=== PATIENT | male | born 1970 | race African-American/Black ===

== ENCOUNTER 2024-11-28 07:24 | Inpatient (IN) | payer BC ==
--- OUTSIDE RECORDS SUMMARY | 2024-11-28 07:28 | XMS REPORT | Continuity of Care Document ---
Author Name Unknown Address [address] [facility] [address] [place] [address] Organization [facility] [place] Address [address] [facility] [address] [place] [address] Care Team Providers Care Evp Operations Name Role Phone MELISSA ABBEY Attending Clinician Unavailable MITESH KWONG Attending Clinician Unavailable MARCUS RUELAS Attending Clinician Unavailable GUERDA URBINA Attending Clinician Unavailable LAB44 Attending Clinician Unavailable PATO WOO Attending Clinician Unavail able BRITTNEY CHRISTINA Attending Clinician Unavailable PLABPA Attending Clinician Unavailable LAWRENCE CISSE Attending Clinician Unavailable SNEHA MONACO Attending Clinician Unavail able JUWAN DEL VALLE Attending Clinician Unavailable AGNIESZKA HINSON Attending Clinician Unavailable DANIS BRENNAN Attending Clinician Unavailable LUIZ MAIN Attending Clinician Unavailable JUJU MUNROE Attending Clinician Unavailable MD ESPERANZA Attending Clinician Unavailab PADMINI Callahan Attending Clinician Unavail able LINUS GONZALEZ Attending Clinician Unavailable JONN BONILLA Attending Clinician Unavailable Cholo Watkins Attending Clinician RIK Gimenez Attending Clinician Unavailable BETO FISHER Attending Clinician Unavailable CROW MORRIS Attending Clinician Víctor Harrison Attending Clinician Unavailable Physician, No Primary or Family Admitting Clinic aldo Unavailable Cholo Watkins Admitting Clinician Jil Harrison Admitting Clinician Unavailable Payers Payer Name Policy Type Policy Number Effective Date Expirati on Date Source BCBS 2 [id number] 2024 00:00:00 CIGNA-CIGNA/PPO 2 [id number] 2020 00:00:00 Problems Condition Name Condition Details Condition Category Status Onset Date Resolution Date Last Treatment Date Treating Clinician Comments Source Shortness of breath Shortness of breath Disease Active 2023-08 0-07 00:00: 00 Selma Seybold - Externa l Prediabete s Prediabete s Disease Active 4-11 00:00: 00 Selma Seybold - Externa l Non compliance w medication regimen Non compliance w medication regimen Disease Active 3-16 00:00: 00 Selma Seybold - Externa l Pyuria Pyuria Disease Active 2021-08 00:00: 00 Selma Seybold - Externa l Hyperlipid emia Hyperlipid emia Disease Active 2021-08 00:00: 00 Selma Seybold - Externa l Obesity Obesity Disease Active 2021-08 00:00: 00 Selma Seybold - Externa l Primary hypertensi on Primary hypertensi on Disease Active 2021-08 0- 00:00: 00 Selma Seybold - Externa l Mild persistent asthma (HHS-HCC) Mild persistent asthma (HHS-HCC) Disease Active 2021-08 0 00:00: 00 Selma Seybold - Externa l Mild intermitte nt asthma without complicati on Mild intermitte nt asthma without complicati on Active Problem 11/15/[facility] Problem Active 2020-11-15 02:45:07 [facility] [place] Seasonal allergic rhinitis, unspecifie d trigger Seasonal allergic rhinitis, unspecifie d trigger Active Problem 11/15/2020 [facility] Problem Active 2020-11-15 02:45:07 [facility] [place] Moderate persistent asthma without complicati on Moderate persistent asthma without complicati on Active Problem 12/01/2018 [facility] Problem Active 2018-12-01 02:45:18 Paulina Cummins Allergies, Adverse Reactions, Alerts Allergy Name Allergy Type Status Severity Reaction(s) Onset Date Inactive Date Treating Clinician Comments Source Latex Propensi ty to adverse reaction s Active Rash 10-28 00:00: 00 Selma Yusuf - Externa l Peanut (Diagnos tic) Propensi ty to adverse reaction s Active Rash 10-28 00:00: 00 Selma Yusuf - Externa l peanut FA Active U 2018-08 00:00: 00 [facility] peanut FA Active U UNKNOWN 2018-08 00:00: 00 [facility] Social History Social Habit Start Date Stop Date Quantity Comments Source Gender identity Neeta Yusuf - External Sexual orientation Kermit Yusuf - External Alcoholic beverage intake 2024-11-17 00:00:00 2024-11-17 00:00:00 Ex-drinker (finding) Selma Yusuf - External Tobacco use and exposure 2024-04-13 00:00:00 2024-04-13 00:00:00 Smokeless tobacco non-user Selma Yusuf - External Alcohol intake 2023-10-29 00:00:00 2023-10-29 00:00:00 Ex-drinker (finding) Selma Yusuf - External History of Social function 2023-03-15 00:00:00 2023-03-15 00:00:00 Selma Yusuf - External History of tobacco use 2022-05-15 00:00:00 Cigarette Smoker Selma Yusuf - External Sex 2021-02-26 15:31:17 2021-02-26 15:31:17 Male (finding) Selma Yusuf - External Sex assigned at 1970 00:00:00 1970 00:00:00 Selma Yusuf - External Smoking Status Start Date Stop Date Source Tobacco smoking consumption unknown Selma Yusuf - External Ex-smoker 2024-04-13 00:00:00 2024-04-13 00:00:00 Selma Yusuf - External Never smoked tobacco Selma Seybold - External Medications Ordered Medication Name Filled Medication Name Start Date Stop Date Current Medication? Ordering Clinician Indication Dosage Frequency Signature (SIG) Comments Components Source Montelukast (SINGULAIR) 10 MG oral Tablet tablet 11-17 00:00: 00 Yes [id number] 10mg QD Take 1 tablet (10 mg total) by mouth nightly. Selma latif FLUTICASONE PROPIONATE, NASAL, 50 MCG/ACT nasal Suspension 11-17 00:00: 00 Yes [id number] 50ug QD Use 1 spray (50 mcg total) in each nostril daily. Selma latif Albuterol (PROVENTIL) (2.5 MG/3ML) 0.083% inhalation Inhalant Solution 11-17 00:00: 00 Yes [id number] 2.5mg Q4H Take 2.5 mg by nebulizati on every 4 hours as needed for wheezing. Selma latif Fluticasone -Salmeterol (Advair Diskus) 250-50 MCG/ACT inhalation AEROSOL POWDER, BREATH ACTIVATED 11-17 00:00: 00 Yes [id number] 1{puff} Q.5D Inhale 1 puff into the lungs 2 times daily. Selma latif Cetirizine (ZYRTEC) 10 MG oral Tablet 2023-08 2-11 00:00: 00 Yes [id number] 10mg QD TAKE 1 TABLET BY MOUTH EVERY DAY Selma latif amLODIPine Besy-Benaze pril HCl 5-10 MG oral Capsule 9-20 00:00: 00 Yes 2{capsu le} QD Take 2 capsules by mouth daily. Selma latif Cetirizine HCl (ZyrTEC Allergy) 10 MG oral TABLET DISPERSIBLE 9-06 00:00: 00 Yes [id number] 1{tbl} QD Take 1 tablet by mouth daily. Selma latif amLODIPine Besy-Benaze pril HCl 5-10 MG oral Capsule 8-30 00:00: 00 Yes 1{capsu le} QD Take 1 capsule by mouth daily. Selma latif Albuterol HFA 108 (90 Base) MCG/ACT IN AERS 04-13 00:00: 00 Yes [id number] 2{puff} Q4H Inhale 2 puffs into the lungs every 4 hours as needed for wheezing. Selma latif Atorvastati n Calcium (Lipitor) 40 MG oral Tablet 04-13 00:00: 00 04-09 04:59 :00 No [id number] 40mg QD Take 1 tablet (40 mg total) by mouth daily. Selma latif Metformin HCl ER 500 MG oral TABLET SR 24 HR 04-13 00:00: 00 04-09 04:59 :00 No [id number] 500mg QD Take 1 tablet (500 mg total) by mouth daily (with breakfast) . Selma latif Budesonide- Formoterol Fumarate (Symbicort) 160-4.5 MCG/ACT inhalation Aerosol 04-13 00:00: 00 11-17 00:00 :00 No [id number] 2{puff} Q.5D Inhale 2 puffs into the lungs 2 times daily. Selma latif Ibuprofen (MOTRIN) 800 MG oral Tablet 02-05 00:00: 00 04-13 00:00 :00 No 800mg Take 1 tablet (800 mg total) by mouth every 6 to 8 hours as needed FOR PAIN. Selma latif Metformin HCl ER 500 MG oral TABLET SR 24 HR 11-23 00:00: 00 04-13 00:00 :00 No [id number] 500mg QD Take 1 tablet (500 mg total) by mouth daily (with breakfast) . Selma latif Atorvastati n Calcium (Lipitor) 40 MG oral Tablet 11-23 00:00: 00 04-13 00:00 :00 No [id number] 40mg QD Take 1 tablet (40 mg total) by mouth daily. Selma latif amLODIPine Besy-Benaze pril HCl 5-10 MG oral Capsule 11-20 00:00: 04-13 00:00 :00 No [id number] 1{capsu le} QD Take 1 capsule by mouth daily. Selma latif amLODIPine Besy-Benaze pril HCl 5-10 MG oral Capsule -16 00:00: 00 Yes [id number] 1{capsu le} Take 1 capsule by mouth daily. Selma latif Atorvastati n Calcium (Lipitor) 20 MG oral Tablet 16 00:00: 00 Yes [id number] 20mg Take 1 tablet (20 mg total) by mouth daily. Selma latif Albuterol HFA 108 (90 Base) MCG/ACT IN AERS 10-28 00:00: 00 04-13 00:00 :00 No [id number] 2{puff} Q4H Inhale 2 puffs into the lungs every 4 hours as needed for wheezing. Selma latif Budesonide- Formoterol Fumarate (Symbicort) 160-4.5 MCG/ACT inhalation Aerosol 10-28 00:00: 00 04-13 00:00 :00 No [id number] 2{puff} Q.5D Inhale 2 puffs into the lungs 2 times daily. Selma latif predniSONE (DELTASONE) 20 MG oral tablet 10-28 00:00: 00 11-05 04:59 :00 No [id number] 20mg Take 1 tablet (20 mg total) by mouth daily for 7 days. Selma latif Naproxen 500 MG oral Tablet 03-15 00:00: 00 04-13 00:00 :00 No 500mg Take 1 tablet (500 mg total) by mouth in the morning and 1 tablet (500 mg total) in the evening. Take with meals. Selma latif Clarithromy syeda 500 MG oral Tablet 4 00:00: 00 03-15 00:00 :00 No [id number] 500mg Take 1 tablet (500 mg total) by mouth 2 times daily for 14 days Selma latif Metronidazo le 500 MG oral Tablet 12-11 00:00: 03-15 00:00 :00 No [id number] 500mg Take 1 tablet (500 mg total) by mouth 3 times daily for 14 days Selma latif Amoxicillin (AMOXIL) 500 MG oral Capsule 12-11 00:00: 00 03-15 00:00 :00 No [id number] 1000mg Take 2 capsules (1,000 mg total) by mouth 2 times daily for 14 days Selma latif Pantoprazol e Sodium (Protonix) 40 MG oral Pack 12-11 00:00: 03-15 00:00 :00 No [id number] 1{packe t} Take 1 packet by mouth every 12 hours for 14 days Selma latif Sod Picosulfate -Mag Ox-Cit Acd (Clenpiq) 10-3.5-12 MG-GM -GM/160ML oral Solution -24 00:00: 12-08 00:00 :00 No 160mL Take 160 mL by mouth once for 1 dose Selma latif Atorvastati n Calcium (Lipitor) 10 MG oral Tablet 09-16 00:00: 00 10-28 00:00 :00 No 10mg Take 1 tablet (10 mg total) by mouth daily Selma latif Doxycycline Hyclate 100 MG oral Tablet 2021-08 00:00: 00 12-08 00:00 :00 No [id number] 100mg Take 1 tablet (100 mg total) by mouth 2 times daily Selma latif Albuterol Sulfate 2.5 MG/0.5ML inhalation Inhalant Solution 2021-08 00:00: 00 11-17 00:00 :00 No [id number] 2.5mg Q4H Take 2.5 mg by nebulizati on every 4 hours as needed for wheezing Selma latif Albuterol HFA 108 (90 Base) MCG/ACT IN AERS 2021-08 00:00: 00 10-28 00:00 :00 No [id number] 2{puff} Q4H Inhale 2 puffs into the lungs every 4 hours as needed for wheezing Selma latif Budesonide- Formoterol Fumarate (Symbicort) 160-4.5 MCG/ACT inhalation Aerosol 2021-08 0- 00:00: 00 10-28 00:00 :00 No [id number] 2{puff} Inhale 2 puffs into the lungs 2 times daily Selma latif LISINOPRIL- HCTZ 10-12.5 MG oral Tablet 2021-08 0 00:00: 00 10-28 00:00 :00 No [id number] 1{tbl} Take 1 tablet by mouth every morning Selma latif Arnuity Ellipta 2019-0 7-17 00:00: 00 Yes Mariusz Annamaneni 1 puff Paulina Cummins Ventolin HFA 2018-0 4-18 00:00: 00 Yes Mariusz Annamaneni 2 puffs as needed Paulina Cummins Immunizations Ordered Immunization Name Filled Immunization Name Date Status Comments Source Tdap- (Boostrix, Adacel) 2022-06-04 00:00:00 Completed Selma Yusuf - External Influenza Virus Vaccine, age 6 months and up 2022-06-04 00:00:00 Completed Selma Yusuf - External Tdap- (Boostrix, Adacel) 2022-06-04 00:00:00 Completed Selma Yusuf - External Influenza Virus Vaccine, age 6 months and up 2022-06-04 00:00:00 Completed Selma Yusuf - External Tdap- (Boostrix, Adacel) 2022-06-04 00:00:00 Completed Selma Yusuf - External Influenza Virus Vaccine, age 6 months and up 2022-06-04 00:00:00 Completed Selma Yusuf - External Tdap- (Boostrix, Adacel) 2022-06-04 00:00:00 Completed Selma Yusuf - External Influenza Virus Vaccine, age 6 months and up 2022-06-04 00:00:00 Completed Selma Seybold - External Tdap- (Boostrix, Adacel) 2022-06-04 00:00:00 Completed Selma Seybold - External Influenza Virus Vaccine, age 6 months and up 2022-06-04 00:00:00 Completed Selma Seybold - External Tdap- (Boostrix, Adacel) Unknown Completed Selma Seybold - External Influenza Virus Vaccine, age 6 months and up Unknown Completed Slema Seybold - External Tdap- (Boostrix, Adacel) Unknown Completed Selma Seybold - External Influenza Virus Vaccine, age 6 months and up Unknown Completed Selma Seybold - External Tdap- (Boostrix, Adacel) Unknown Completed Selma Seybold - External Influenza Virus Vaccine, age 6 months and up Unknown Completed Selma Seybold - External Pneumococcal Vaccine, Conjugate 20 Unknown Completed Selma Seybold - External Tdap- (Boostrix, Adacel) Unknown Completed Selma Seybold - External Influenza Virus Vaccine, age 6 months and up Unknown Completed Selma Seybold - External Pneumococcal Vaccine, Conjugate 20 Unknown Completed Selma Seybold - External Hepatitis B- 2 Dose (HEPLISAV B) Unknown Completed Selma Seybold - External Shingles IM (Shingrix) Unknown Completed Selma Seybold - External Tdap- (Boostrix, Adacel) Unknown Completed Selma Seybold - External Influenza Virus Vaccine, age 6 months and up Unknown Completed Selma Seybold - External Pneumococcal Vaccine, Conjugate 20 Unknown Completed Selma Seybold - External Hepatitis B- 2 Dose (HEPLISAV B) Unknown Completed Selma Seybold - External Shingles IM (Shingrix) Unknown Completed Selma Seybold - External Tdap- (Boostrix, Adacel) Unknown Completed Selma Seybold - External Influenza Virus Vaccine, age 6 months and up Unknown Completed Selma Seybold - External Pneumococcal Vaccine, Conjugate 20 Unknown Completed Selma Seybold - External Hepatitis B- 2 Dose (HEPLISAV B) Unknown Completed Selma Seybold - External Shingles IM (Shingrix) Unknown Completed Selma Seybold - External Vital Signs Vital Name Observation Time Observation Value Comments S ource Systolic blood pressure 2024-11-17 17:59:00 156 mm[Hg] Selma Odaliso ld - External Diastolic blood pressure 2024-11-17 17:59:00 77 mm[Hg] Selma Seybo ld - External Heart rate 2024-11-17 17:59:00 83 /min Kelse y Seybold - External Body temperature 2024-11-17 17:59:00 36.94 Kathie Selma Seybold - External Respiratory rate 2024-11-17 17:59:00 20 /min Selma Seybold - External Body height 2024-11-17 17:59:00 190.5 cm Neeta ey Seybold - External Body weight 2024-11-17 17:59:00 121.564 kg Neeta ey Seybold - External BMI 2024-11-17 17:59:00 33.50 kg/m2 Neeta ey Seybold - External Oxygen saturation in Arterial blood by Pulse oximetry 2024-11-17 17:59:00 94 /min Selma Seybo ld - External Systolic blood pressure 2024-07-23 14:37:00 145 mm[Hg] Selma Seybo ld - External Diastolic blood pressure 2024-07-23 14:37:00 78 mm[Hg] Selma Seybo ld - External Heart rate 2024-07-23 14:35:00 83 /min Gianse y Seybold - External Body temperature 2024-07-23 14:35:00 36.83 Kathie Selma Seybold - External Respiratory rate 2024-07-23 14:35:00 17 /min Selma Seybold - External Body height 2024-07-23 14:35:00 190.5 cm Neeta ey Seybold - External Body weight 2024-07-23 14:35:00 118.842 kg Neeta ey Seybold - External BMI 2024-07-23 14:35:00 32.75 kg/m2 Neeta ey Seybold - External Systolic blood pressure 2024-05-21 13:47:00 152 mm[Hg] Selma Seybo ld - External Diastolic blood pressure 2024-05-21 13:47:00 96 mm[Hg] Selma Seybo ld - External Heart rate 2024-05-21 13:47:00 76 /min Kelse y Seybold - External Body temperature 2024-05-21 13:47:00 36.67 Kathie Selma Seybold - External Respiratory rate 2024-05-21 13:47:00 17 /min Selma Seybold - External Body height 2024-05-21 13:47:00 190.5 cm Neeta ey Seybold - External Body weight 2024-05-21 13:47:00 122.471 kg Neeta ey Seybold - External BMI 2024-05-21 13:47:00 33.75 kg/m2 Neeta ey Seybold - External Oxygen saturation in Arterial blood by Pulse oximetry 2024-05-21 13:47:00 97 /min Selma Seybo ld - External Systolic blood pressure 2024-04-20 19:51:00 138 mm[Hg] Selma Seybo ld - External Diastolic blood pressure 2024-04-20 19:51:00 74 mm[Hg] Selma Seybo ld - External Heart rate 2024-04-20 19:51:00 80 /min Kelse y Seybold - External Body temperature 2024-04-20 19:51:00 37.17 Kathie Selma Seybold - External Respiratory rate 2024-04-20 19:51:00 18 /min Selma Seybold - External Body height 2024-04-20 19:51:00 190.5 cm Neeta ey Seybold - External Body weight 2024-04-20 19:51:00 121.564 kg Neeta ey Seybold - External BMI 2024-04-20 19:51:00 33.50 kg/m2 Neeta ey Seybold - External Oxygen saturation in Arterial blood by Pulse oximetry 2024-04-20 19:51:00 98 /min Selma Seybo ld - External Systolic blood pressure 2024-04-13 18:35:00 201 mm[Hg] Selma Seybo ld - External Diastolic blood pressure 2024-04-13 18:35:00 102 mm[Hg] Selma Seybo ld - External Heart rate 2024-04-13 18:30:00 91 /min Kelse y Seybold - External Body temperature 2024-04-13 18:30:00 36.83 Kathie Selma Seybold - External Respiratory rate 2024-04-13 18:30:00 18 /min Selma Seybold - External Body height 2024-04-13 18:30:00 190.5 cm Neeta ey Seybold - External Body weight 2024-04-13 18:30:00 125.646 kg Neeta ey Seybold - External BMI 2024-04-13 18:30:00 34.62 kg/m2 Neeta ey Seybold - External Systolic blood pressure 2023-10-29 17:36:00 172 mm[Hg] Selma Seybo ld - External Diastolic blood pressure 2023-10-29 17:36:00 100 mm[Hg] Selma Seybo ld - External Oxygen saturation in Arterial blood by Pulse oximetry 2023-10-29 17:36:00 97 /min Selma Seybo ld - External Heart rate 2023-10-29 17:35:00 79 /min Kelse y Seybold - External Body temperature 2023-10-29 17:35:00 36.89 Kathie Selma Seybold - External Respiratory rate 2023-10-29 17:35:00 20 /min Selma Seybold - External Body weight 2023-10-29 17:35:00 119.296 kg Neeta ey Seybold - External BMI 2023-10-29 17:35:00 32.87 kg/m2 Neeta ey Seybold - External Systolic blood pressure 2023-03-15 18:26:00 146 mm[Hg] Selma Seybo ld - External Diastolic blood pressure 2023-03-15 18:26:00 90 mm[Hg] Selma Seybo ld - External Heart rate 2023-03-15 18:26:00 68 /min Kelse y Seybold - External Body temperature 2023-03-15 18:26:00 36.89 Kathie Selma Seybold - External Respiratory rate 2023-03-15 18:26:00 14 /min Selma Seybold - External Body height 2023-03-15 18:26:00 190.5 cm Neeta ey Seybold - External Body weight 2023-03-15 18:26:00 118.661 kg Neeta ey Seybold - External BMI 2023-03-15 18:26:00 32.70 kg/m2 Neeta ey Seybold - External Systolic blood pressure 2022-12-08 20:34:00 132 mm[Hg] Selma Seybo ld - External Diastolic blood pressure 2022-12-08 20:34:00 82 mm[Hg] Selma Seybo ld - External Heart rate 2022-12-08 20:34:00 76 /min Kelse y Seybold - External Body temperature 2022-12-08 20:34:00 37.06 Kathie Selma Seybold - External Respiratory rate 2022-12-08 20:34:00 16 /min Selma Seybold - External Body height 2022-12-08 20:34:00 190.5 cm Neeta ey Seybold - External Body weight 2022-12-08 20:34:00 120.203 kg Neeta ey Seybold - External BMI 2022-12-08 20:34:00 33.12 kg/m2 Neeta ey Seybold - External Systolic blood pressure 2022-09-16 19:56:00 144 mm[Hg] Selma Seybo ld - External Diastolic blood pressure 2022-09-16 19:56:00 86 mm[Hg] Selma Seybo ld - External Heart rate 2022-09-16 19:56:00 96 /min Kelse y Seybold - External Body temperature 2022-09-16 19:56:00 36.94 Kathie Selma Seybold - External Respiratory rate 2022-09-16 19:56:00 18 /min Selma Seybold - External Body height 2022-09-16 19:56:00 190.5 cm Neeta ey Seybold - External Body weight 2022-09-16 19:56:00 122.018 kg Neeta ey Seybold - External BMI 2022-09-16 19:56:00 33.62 kg/m2 Neeta ey Seybold - External Systolic blood pressure 2022-08-06 21:16:00 148 mm[Hg] Selma Seybo ld - External Diastolic blood pressure 2022-08-06 21:16:00 98 mm[Hg] Selma Seybo ld - External Heart rate 2022-08-06 21:16:00 98 /min Kelse y Seybold - External Body temperature 2022-08-06 21:16:00 36.67 Kathie Selma Seybold - External Respiratory rate 2022-08-06 21:16:00 18 /min Selma Seybold - External Body height 2022-08-06 21:16:00 190.5 cm Neeta ey Seybold - External Body weight 2022-08-06 21:16:00 119.296 kg Neeta ey Seybold - External BMI 2022-08-06 21:16:00 32.87 kg/m2 Neeta ey Seybold - External Systolic blood pressure 2022-06-16 19:10:00 142 mm[Hg] Selma Seybo ld - External Diastolic blood pressure 2022-06-16 19:10:00 90 mm[Hg] Selma Seybo ld - External Heart rate 2022-06-16 19:10:00 96 /min Kelse y Seybold - External Body temperature 2022-06-16 19:10:00 36.78 Kathie Selma Seybold - External Respiratory rate 2022-06-16 19:10:00 12 /min Selma Seybold - External Body weight 2022-06-16 19:10:00 118.389 kg Neeta ey Seybold - External BMI 2022-06-16 19:10:00 32.62 kg/m2 Neeta ey Seybold - External Encounters Start Date/Time End Date/Time Encounter Type Admission Type Attending [facility] Facility Care Department Encounter ID Source 2019-10-01 19:21:00 Inpatient HCATB DARIEN [id number] [facility] 2025-01-18 11:00:00 2025-01-18 11:00:00 Outpatient ABBEY TORRES [id number] [facility] ybrita 2024-11-21 13:30:00 2024-11-21 13:30:00 Outpatient ABBEY TORRES [id number] [facility] Seybrita 2024-11-20 00:00:00 2024-11-20 00:00:00 Outpatient [facility] [id number] [facility]24-[facility]-20 00:00:00 2024-11-20 00:00:00 Outpatient MARCUS RUELAS [id number] [facility] Seybrita 2024-11-17 13:00:00 2024-11-17 13:00:00 Outpatient GUERDA URBINA [facility] FAUST [id number] [facility] 2024-11-17 10:30:00 2024-11-17 10:30:00 Outpatient GUERDA URBINA [facility] FAUST [id number] [facility] 2024-08-21 08:00:00 2024-08-21 08:00:00 Outpatient MITESH KWONG [facility] [id number] [facility] 2024-08-10 09:10:00 2024-08-10 09:10:00 Outpatient LAB44 [facility] FAUST [id number] [facility] 2024-07-25 00:00:00 2024-07-25 00:00:00 Outpatient PATO WOO [facility] FA[facility] [id number] [facility] 2024-07-23 09:00:00 2024-07-23 09:00:00 Outpatient MITESH KWONG [facility] FAUST [id number] [facility] 2024-05-21 16:30:00 2024-05-21 16:30:00 Outpatient BRITTNEY CHRISTINA [facility] FAUST [id number] [facility] 2024-05-21 14:00:00 2024-05-21 14:00:00 Outpatient MITESH KWONG [facility] FAUST [id number] [facility] 2024-05-21 09:00:00 2024-05-21 09:00:00 Outpatient MITESH KWONG [facility] FAUST [id number] [facility] 2024-05-16 15:40:00 2024-05-16 15:40:00 Outpatient PLABPA [facility] [id number] [facility] 2024-05-16 08:30:00 2024-05-16 08:30:00 Outpatient SELMA FAUST [id number] [facility] 2024-05-10 09:30:00 2024-05-10 09:30:00 Outpatient LAB44 [facility] FAUST [id number] [facility] 2024-05-04 14:30:00 2024-05-04 14:30:00 Outpatient LAWRENCE CISSE [id number] [facility] 2024-04-26 13:30:00 2024-04-26 13:30:00 Outpatient DAMIANYosefSNEHA HANNA RA [facility] [id number] [facility] 2024-04-21 09:10:00 2024-04-21 09:10:00 Outpatient LABTeresa [facility] FAUST [id number] [facility] Seybold 2024-04-20 15:50:00 2024-04-20 15:50:00 Outpatient SELMA FAUST [id number] [facility] 2024-04-20 14:30:00 2024-04-20 14:30:00 [facility] [id number] [facility] 08:20:00 2024-04-20 08:20:00 Outpatient JUWAN DEL VALLE [id number] [facility] 2024-04-13 13:30:00 2024-04-13 13:30:00 Outpatient KATINA KWONGIA [facility] [id number] [facility] 2024-04-13 00:00:00 2024-04-13 00:00:00 Outpatient JUWAN DEL VALLE [id number] [facility] 2024-01-20 12:00:00 2024-01-20 12:00:00 Outpatient AGNIESZKA HINSON [id number] [facility] 2024-01-05 16:00:00 2024-01-05 16:00:00 Outpatient DANIS BRENNAN [id number] [facility] 2023-12-09 15:00:00 2023-12-09 15:00:00 Outpatient MARCUS RUELAS [id number] [facility] 2023-12-09 09:30:00 2023-12-09 09:30:00 Outpatient LUIZ MAIN [id number] [facility] 2023-11-24 00:00:00 2023-11-24 00:00:00 Outpatient PATO WOO [id number] [facility] Seybold 2023-11-20 00:00:00 2023-11-20 00:00:00 Outpatient PATO WOO [facility] [id number] [facility] Seybold 2023-11-19 09:25:00 2023-11-19 09:25:00 Outpatient LAB44 SELMA FAUST [id number] [place] Seybold 2023-10-29 12:15:00 2023-10-29 12:15:00 Outpatient PATO WOO SELMA FAUST [id number] [place] Seybold 2023-07-08 00:00:00 2023-07-08 00:00:00 Outpatient JUJU MUNROE [id number] [place] Seybold 2023-03-15 13:30:00 2023-03-15 13:30:00 Outpatient MARCUS RUELAS [id number] [place] Seybold 2022-12-27 15:00:00 2022-12-27 15:00:00 Outpatient JUJU MUNROE [id number] [place] Seybold 2022-12-22 16:20:00 2022-12-22 16:20:00 Outpatient LAB44 SELMA FAUST [id number] [place] Seybold 2022 00:00:00 2022 00:00:00 Outpatient MD SELMA GONSALES [id number] [place] Seybold 2022-12-13 00:00:00 2022-12-13 00:00:00 Outpatient JUJU MUNROE [id number] [place] Seybold 2022-12-11 00:00:00 2022-12-11 00:00:00 Outpatient PADMINI LONGO [id number] [place] Seybold 2022-12-11 00:00:00 2022-12-11 00:00:00 Outpatient LINUS GONZALEZ [id number] [place] Seybold 2022-12-10 00:00:00 2022-12-10 00:00:00 Outpatient JUJU MUNROE [id number] Eslma Seybold 2022-12-08 16:05:00 2022-12-08 16:05:00 Outpatient VIJAYTeresa FAUST [id number] [place] Seybrita 2022-12-08 15:30:00 2022-12-08 15:30:00 Outpatient JUJU MUNROE SELMA FAUST [id number]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 Hosp: Cefdinir Cap (Omnicef Cap) Dose: 300 MG PO Q12H, Disp: 14 capsule, Refills: 0 Hosp: Losartan/HCTZ 100/25 Tab (Hyzaar 100-25 MG Tab) Dose: 1 TAB PO DAILY, Disp: 90 tablet, Refills: 0 Hosp: predniSONE Tab (Deltasone Tab) Dose: 20 MG PO BID, Disp: 10 tablet, Refills: 0 - For 5 days STOPPED HOSPITAL MEDICATIONS Dc'd: Albuterol Neb 2.5mg (Ventolin Neb 2.5mg) 2.5MG Neb RTQIDDc'd: Albuterol/Ipratrop Neb Soln (Duoneb Neb Soln) 3ML Neb [id number]'d: Budesonide Neb Soln (Pulmicort Neb Soln) 0.5MG Neb RTBIDDc'd: cefTRIAXone Inj (Rocephin Inj) 1000MG 200 MLS/HR IV DAILY@2100 X 5 dosesin Sodium Chloride 0.9% (Nacl 0.9%) 10ML Dc'd: HCTZ Tab (Hydrochlorothiazide Tab) 12.5MG PO DAILYDc'd: hydrALAZINE Inj (Apresoline Inj) 10MG IV Q4H PRN sbp >160 or dbp >110Dc'd: Lisinopril Tab (Prinivil Tab) 20MG PO DAILYDc'd: methylPREDNISolone Inj (Solu-MEDROL Inj) 40MG IV [id number] Signed in PatientKeeper by Cholo Watkins on 11/18/21 13:49 at 1350 ATTENT ION *EDITS and/or ADDENDA must be made in Patient Keeper for this note. * * Edits and ammendments created in [facility] are not visible * * in Patient Keeper or the legal medical record (HPF). * RPT #: [id number] [facility] 13:31:00 [facility] ([facility] Internal Med. Progress Note REPORT #: [id number] REPORT STATUS: Signed DATE: 11/18/21 TIME: 1331 PATIENT: RALF RUSH UNIT #: [id number] ROOM #: N.[id number] BED: 1 : 70 AGE: 50 SEX: M ATTEND: Cholo Watkins MD ADM AUTHOR: Cholo Watkins MD ATTENT ION *EDITS and/or ADDENDA must be made in Patient Keeper for this note. * * Edits and ammendments created in House Party are not visible * * in Patient Keeper or the legal medical record ([facility]). * -- ASSESSMENT AND PLAN -- PROBLEMS: 1: Acute asthma exacerbation A/P: Improved, no wheezing 2: Acute bronchitis A/P: PO Antibiotics 3: Hypertension A/P: Optimize antihypertensive 4: Dyslipidemia A/P: Start Lipitor 5: Obesity A/P: Discussed to loose weight 6: Marijuana abuse A/P: Discussed to refrain from marijuana abuse ADDITIONAL COMMENTS: Discharge home on PO steroid, antibiotics Thank you for allowing me to participate in the care of this patient. Total time spent: more than 45 mins Including seeing patient, d/w nursing, review of medications, labs, radiology reports, hearing aid consultant notes, and coordination of care. -- SUBJECTIVE -- CHIEF COMPLAINT: Breathing better, BP better but not optimal, -REVIEW OF SYSTEMS- GENERAL: Negative for fever, malaise, fatigue. EYES: Negative for blurry vision. No diplopia. EARS/NOSE/THROAT: Negative for sore throat. No otalgia. No rhinorrhea. BREAST: Negative for change in shape, swelling, masses, nipple discharge, pain, skin changes. RESPIRATORY: Positive for dyspnea and wheeze. Positive cough. CARDIOVASCULAR: Negative for chest pain or palpitations. No extremity swelling. GASTROINTESTINAL: Negative for abdominal pain or nausea. No emesis. No diarrhea. GENITOURINARY: Negative for dysuria, frequency, or urgency. No gross hematuria. MUSCULOSKELETAL: Negative for joint stiffness, pain, or arthralgias. SKIN: Negative for rashes. No pruritus. NEUROLOGICAL: Negative for headache. No vertigo. Denies paresthesias. PSYCHIATRIC: Negative for specific complaints. ENDOCRINE: Negative for cold intolerance, heat intolerance, polyphagia, polydipsia, polyuria, weight change, fatigue. HEMATALOGIC / LYMPHORETICULAR: Negative for excessive bleeding, unusual masses. ALLERGIC / IMMUNOLOGIC: Negative for heat/cold intolerance, polydipsia, or polyuria. -- OBJECTIVE -- VITALS (11/17 13:31 - 11/18 13:31): Temperature C: 36.9 (36.5 - 36.9) Temperature source: Oral Pulse Rate 74 (71 - 87) Respiratory rate: 18 (18 - 20) BP: 163/90 (155/73 - 166/96) I/Os (11/17 07:00 - 11/18 07:00): Net 240 Intake 240 -EXAM- GENERAL: Well developed, well nourished, in no apparent distress. HEAD: Normocephalic, atraumatic. EYES: PERRL, EOM intact, conjunctiva and sclera clear, without nystagmus, lids normal. EARS: TM's intact and clear, normal canals, grossly normal hearing. NOSE: No deformity, no discharge, no inflammation, no lesions. MOUTH: Oropharynx without deformities or lesions, normal mucosa.. NECK: No masses, no thyromegaly, no abnormal cervical nodes, trachea midline. CHEST: Grossly normal appearance. BREAST: Examination deferred LUNGS: Clear bilaterally with normal respiratory effort. HEART: Regular rate and rhythm, normal S1, S2, no murmurs, no rubs, no gallops, no clicks. ABDOMEN: Soft, non-tender, no organomegaly, no masses noted. MUSCULOSKELETAL: No deformity, no scoliosis noted of thoracic or lumbar spine, joint ROM grossly normal, normal gait and station. EXTREMITIES: No clubbing, no cyanosis, no edema. NEUROLOGICAL: No focal deficits, cranial nerves II-XII grossly intact, normal sensation, normal reflexes, normal coordination, normal muscle strength, normal tone. PULSES: Pulses normal in all extremities. RECTAL: Normal rectal tone, no masses. GENITOURINARY: Normal external genitalia. SKIN: Intact without significant lesions, or rashes. LYMPH NODES: No significant cervical node adenopathy. No significant axillary node adenopathy. No significant inguinal node adenopathy. PSYCHIATRIC: Alert and oriented to time, person, place. Normal mood and affect, intact judgment and insight. -- DATA -- MEDICATIONS hydroCHLOROthiazide 12.5 MG PO DAILY ALBUTEROL SULFATE 2.5 MG NEB RTQID cefTRIAXone with/in SODIUM CHLORIDE 0.9% 1000 MG IV DAILY@2100 hydrALAZINE HCL 10 MG IV Q4H PRN ALBUTEROL SULFATE 2.5 MG NEB RTQ4H PRN lisinopriL 20 MG PO DAILY carvediloL 25 MG PO Q12HR methylPREDNISolone SOD SUCC 40 MG IV Q8HR BUDESONIDE 0.5 MG NEB RTBID NIFEdipine 30 MG PO Q12HR IPRATROPIUM/ALBUTEROL SULFATE 3 ML NEB RTQ6H LABS GLU BED (11/18/21 05:44) GLUBED 150 H BASIC METABOLIC PANEL (11/18/21 04:50) SODIUM 136 POTASSIUM 4.6 CHLORIDE 99L L CARBON DIOXIDE 28 GLUCOSE 132H H BLOOD UREA NITROGEN 17 GLOMERULAR FILTRATION RATE >=60 max estimate CREATININE 1.12 CALCIUM 9.5 TSH (11/18/21 04:50) THYROID STIMULATING HORMONE 0.693 LIPID PROFILE (CORONARY RISK) (11/18/21 04:50) TRIGLYCERIDES 57 CHOLESTEROL 247 H HDL CHOLESTEROL 62 LIPOPROTEIN LDL 174 H CORONARY RISK FACTOR 3.98 GLU BED (11/17/21 20:51) GLUBED 141 H GLU BED (11/17/21 15:19) GLUBED 128 H -- ATTESTATION -- TIME SPENT ON PATIENT CARE: - > 50% of time spent on Counseling/Care Coordination CARE ACTIVITIES / CARE COORDINATION: - I have seen and examined this patient - I have reviewed the progress in the clinical course since the last examination - I have discussed the patient's condition with other members of the care team Signed in PatientKeeper by Cholo Watkins MD on 11/18/21 at 13:39 at 1339 ATTENT ION *EDITS and/or ADDENDA must be made in Patient Keeper for this note. * * Edits and ammendments created in House Party are not visible * * in Patient Keeper or the legal medical record (HPF). * [facility] #: [id number] END OF REPORT [facility] 2021-11-17 11:23:00 [id number] [address] PATIENT NAME: RALF RUSH ADMIT DATE: 11/16/21 ACCOUNT NO: [id number] ROOM NO: N.[id number] AGE: 50 REPORT TYPE: HISTORY AND PHYSICAL SEX: M ADMITTING PHYSICIAN:Cholo Watkins MD ATTENDING PHYSICIAN:Cholo Watkins MD ADMISSION DATE: 11/16/2021 CHIEF COMPLAINT: Shortness of air, cough, and wheezing for 2 to 3 weeks. HISTORY OF PRESENT ILLNESS: Mr. Ralf Rush is a 50-year-old male with a known history of asthma and also smokes marijuana every weekend, developed worsening shortness of air, wheezing, and tightness in the chest for the last 2 to 3 weeks, which was waxing and waning. Finally, he was seen by his industrial hygiene manager where he was also noted to have uncontrolled blood pressure. He was asked to come to the Emergency Department. A chest x-ray done in the ER did not show any acute abnormality, though his blood pressure was 176/127. He was started on antihypertensive medications, given inhaled bronchodilators and IV steroid and admitted for further evaluation and care. He denied any fever, chills, hemoptysis, chest pain, palpitation, dysuria, hematuria, diarrhea, constipation, leg edema, PND, or orthopnea. PAST MEDICAL HISTORY: Significant for asthma. PAST SURGICAL HISTORY: Not significant. MEDICATIONS AT HOME: Albuterol nebulizer. ALLERGIES: HE IS ALLERGIC TO PEANUTS, BUT NO KNOWN MEDICATIONS. SOCIAL HISTORY: He denies any history of tobacco smoking. He smokes marijuana and drinks beer on weekends. FAMILY HISTORY: His grandmother has diabetes mellitus. His mother had hypertension. REVIEW OF SYSTEMS: All systems were reviewed and noncontributory except as per history of present illness. PHYSICAL EXAMINATION: GENERAL: He is alert and oriented x3, not in acute distress. VITAL SIGNS: Blood pressure 156/87, pulse 69, respiratory rate 18, and temperature 98.1 degrees Fahrenheit. HEENT: Normocephalic, atraumatic. Pupils are equal and equally reactive to light. Extraocular movement intact. Oral mucosa moist. Oropharynx clear. NECK: Supple. No lymphadenopathy. No JVD. No carotid artery bruit, no thyromegaly. CHEST: Clear to auscultation bilaterally, but decreased breath sounds PATIENT NAME RALF RUSH throughout. No wheezing. CARDIOVASCULAR SYSTEM: Regular rate and rhythm. Decreased S1 and S2. No murmur, gallop, or rub. ABDOMEN: Soft, nontender, nondistended. Bowel sounds present. EXTREMITIES: No clubbing, cyanosis, or edema. LABORATORY DATA: CBC: WBC 9.3, hemoglobin 16.4, hematocrit 49.2, platelet 288. Serum electrolytes; sodium 137, potassium 4.2, chloride 103, CO2 of 27, BUN 8, creatinine 1.10, blood glucose 88. LFTs are normal. Troponin I less than 0.020. ASSESSMENT: 1. Acute asthma exacerbation. 2. Acute bronchitis. 3. Hypertension. 4. Obesity. 5. Marijuana abuse. PLAN: IV Solu-Medrol 40 mg every 8 hours, inhaled bronchodilators and inhaled steroid. Start antihypertensive medications and optimize dose as necessary. Discussed to refrain from using marijuana and avoid alcohol use. Check TSH, lipid profile and update other labs in the morning. Discussed with consulting industrial hygiene manager, Dr. Valentin. Discussed with the nurse taking care of the patient. Discussed with the patient plan of management. We will follow. Dictated By: Cholo Watkins MD WT: HP:N.NELLIE/KUALONZO Conf#: [id number]/DID#: [id number] Authenticated by Cholo Watkins MD On 11/19/2021 05:13:03 PM at 0513 PATIENT NAME RALF RUSH [facility] 2021-11-17 09:54:00 [id number] [address] PATIENT NAME: RALF RUSH ADMIT DATE: 11/16/21 ACCOUNT NO: [id number] ROOM NO: N.0585 AGE: 50 REPORT TYPE: PROGRESS NOTE SEX: M ADMITTING PHYSICIAN:Cholo Watkins MD ATTENDING PHYSICIAN:Cholo Watkins MD DATE: 11/17/2021 PULMONARY PROGRESS NOTE SUBJECTIVE: The patient notices shortness of breath on exertion, cough. Denies any chest pain, nausea, or vomiting. OBJECTIVE: VITAL SIGNS: Respiratory rate of 18, pulse 77, afebrile. Blood pressure 159/92. NECK: No raised JVD. No lymphadenopathy. HEART: Both first and second heart sounds heard. LUNGS: Bilateral rhonchi scattered. ABDOMEN: Soft. EXTREMITIES: No edema. CENTRAL NERVOUS SYSTEM: Moving all extremities. IMPRESSION: 1. Acute exacerbation of asthma. 2. Acute bronchitis. 3. Hypertension, newly diagnosed. PLAN: Continue with IV ceftriaxone. On methylprednisolone. Nebulizer treatments to continue. On carvedilol and amlodipine. Cardiology consulted. Dictated By: Mariusz Valentin MD WT: PN:BOB/KALANI Conf#: [id number]/DID#: [id number] Authenticated by Mariusz Valentin MD On 12/12/2021 02:51:37 PM at 0251 PATIENT NAME RALF RUSH [facility] 2021-11-17 07:30:00 [facility] ([facility]) Cardiology Consultation REPORT #: [id number] REPORT STATUS: Signed DATE: 11/17/21 TIME: 729 PATIENT: RALF RUSH UNIT #: [id number] ROOM #: N.0585 BED: 1 : 70 AGE: 50 SEX: M ATTEND: Cholo Watkins MD ADM AUTHOR: Clayton Smith MD ATTENT ION *EDITS and/or ADDENDA must be made in Patient Keeper for this note. * * Edits and ammendments created in House Party are not visible * * in Patient Keeper or the legal medical record (HPF). * -- ASSESSMENT AND PLAN -- ADDITIONAL COMMENTS: 1. Acute respiratory insufficiency- secondary to asthma exacerbation. Further management per pulmonary. 2. HTN urgency- was atrted on Coreg, Amlodipine yesterday evening. Increase Coreg dose. Obtain TTE. 3. Marijuana use Time spent: 45 min -- HISTORY -- CONSULT REQUESTED BY: MARIUSZ VALENTIN MD DATE/TIME AT BEDSIDE: 2021-11-17 07:30 HPI: Patient is a 50-year-old male with h/o asthma, marijuana user, HTN admitted from Dr Valentin office with increasing shortness of breath and elevated BP. He has been out of his BP meds for a long time. Added Amlodipine, Coreg yesterday evening. BP is better. Increase Coreg to 1.5 tab bid. Denies any chest pain, palpitation, syncope or diaphoresis. . PAST MEDICAL HISTORY: asthma, marijuana user, HTN PAST SURGICAL HISTORY: Reviewed and unremarkable. FAMILY HISTORY: Reviewed and unremarkable. -SOCIAL HISTORY- -TOBACCO USE- DETAILS/COMMENTS: Former -- ALLERGIES/HOME MEDS -- ALLERGIES: peanut (Unknown - Allergy) -- SUBJECTIVE -- -REVIEW OF SYSTEMS- GENERAL: Negative for fever, malaise, fatigue. EYES: Negative for blurry vision. No diplopia. EARS/NOSE/THROAT: Negative for sore throat. No otalgia. No rhinorrhea. BREAST: Negative for change in shape, swelling, masses, nipple discharge, pain, skin changes. RESPIRATORY: Negative for cough. CARDIOVASCULAR: Negative for chest pain or palpitations. No extremity swelling. GASTROINTESTINAL: Negative for abdominal pain or nausea. No emesis. No diarrhea. GENITOURINARY: Negative for dysuria, frequency, or urgency. No gross hematuria. MUSCULOSKELETAL: Negative for joint stiffness, pain, or arthralgias. SKIN: Negative for rashes. No pruritus. NEUROLOGICAL: Negative for headache. No vertigo. Denies paresthesias. PSYCHIATRIC: Negative for specific complaints. ENDOCRINE: Negative for cold intolerance, heat intolerance, polyphagia, polydipsia, polyuria, weight change, fatigue. HEMATALOGIC / LYMPHORETICULAR: Negative for excessive bleeding, unusual masses. ALLERGIC / IMMUNOLOGIC: Negative for heat/cold intolerance, polydipsia, or polyuria. -- OBJECTIVE -- VITALS (11/16 14:29 - 11/17 14:29): Temperature F: 98.1 Temperature C: 36.5 (36.5 - 36.8) Temperature source: Oral Pulse Rate 77 (69 - 82) Respiratory rate: 18 BP: 168/109 (156/87 - 176/127) -EXAM- GENERAL: Well developed, well nourished, in no apparent distress. HEAD: Normocephalic, atraumatic. EYES: PERRL, EOM intact, conjunctiva and sclera clear, without nystagmus, lids normal. EARS: TM's intact and clear, normal canals, grossly normal hearing. NOSE: No deformity, no discharge, no inflammation, no lesions. MOUTH: Oropharynx without deformities or lesions, normal mucosa.. NECK: No masses, no thyromegaly, no abnormal cervical nodes, trachea midline. CHEST: Grossly normal appearance. BREAST: No masses, no gynecomastia noted. LUNGS: Clear bilaterally with normal respiratory effort. HEART: Regular rate and rhythm, normal S1, S2, no murmurs, no rubs, no gallops, no clicks. ABDOMEN: Soft, non-tender, no organomegaly, no masses noted. MUSCULOSKELETAL: No deformity, no scoliosis noted of thoracic or lumbar spine, joint ROM grossly normal, normal gait and station. EXTREMITIES: No clubbing, no cyanosis, no edema. NEUROLOGICAL: No focal deficits, cranial nerves II-XII grossly intact, normal sensation, normal reflexes, normal coordination, normal muscle strength, normal tone. PULSES: Pulses normal in all extremities. RECTAL: Normal rectal tone, no masses. GENITOURINARY: Normal external genitalia. SKIN: Intact without significant lesions, or rashes. LYMPH NODES: No significant cervical node adenopathy. No significant axillary node adenopathy. No significant inguinal node adenopathy. PSYCHIATRIC: Alert and oriented to time, person, place. Normal mood and affect, intact judgment and insight. -- DATA -- MEDICATIONS hydroCHLOROthiazide 12.5 MG PO DAILY ALBUTEROL SULFATE 2.5 MG NEB RTQID amLODIPine BESYLATE 5 MG PO Q12HR cefTRIAXone with/in SODIUM CHLORIDE 0.9% 1000 MG IV DAILY@2100 hydrALAZINE HCL 10 MG IV Q4H PRN ALBUTEROL SULFATE 2.5 MG NEB RTQ4H PRN lisinopriL 20 MG PO DAILY methylPREDNISolone SOD SUCC 40 MG IV Q8HR BUDESONIDE 0.5 MG NEB RTBID carvediloL 12.5 MG PO Q12HR IPRATROPIUM/ALBUTEROL SULFATE 3 ML NEB RTQ6H LABS COVID 19 INHOUS (11/17/21 10:20) COVID 19 INHOUSE AG NEGATIVE TROPI (11/16/21 16:46) TROPONIN-I <0.020 COMPREHENSIVE METABOLIC PANEL (11/16/21 16:46) SODIUM 137 POTASSIUM 4.2 CHLORIDE 103 CARBON DIOXIDE 27 GLUCOSE 88 BLOOD UREA NITROGEN 8 GLOMERULAR FILTRATION RATE >=60 max estimate CREATININE 1.10 TOTAL PROTEIN 7.1 ALBUMIN 3.9 CALCIUM 8.5 BILIRUBIN TOTAL 0.40 SGOT/AST 24 SGPT/ALT 25 ALKALINE PHOSPHATASE 78 CBC W/AUTO DIFF (11/16/21 16:46) WHITE BLOOD CELL 9.3 RED BLOOD CELL 5.29 HEMOGLOBIN 16.4 HEMATOCRIT 49.2 MEAN CELL VOLUME 93 MEAN CELL HGB 31.0 MEAN CELL HGB CONCENTRATION 33.3 RED CELL DISTRIBUTION WIDTH 12.6 PLATELET COUNT 288 MEAN PLATELET VOLUME 9.6 NEUTROPHIL % 58.2 IMMATURE GRANULOCYTE % 0.2 LYMPHOCYTE % 22.7 MONOCYTE % 8.2 EOSINOPHIL % 9.7 H BASOPHIL % 1.0 NUCLEATED RBC % 0.0 NEUTROPHIL # 5.4 LYMPHOCYTE # 2.11 MONOCYTE # 0.8 EOSINOPHIL # 0.9 H BASOPHIL # 0.1 BNP (11/16/21 16:46) B-TYPE NATRIURETIC PEPTIDE 8 DRUGS OF ABUSE SCREEN URINE (11/16/21 16:46) UR COCAINE NEGATIVE UR CANABINOIDS POSITIVE A UR AMPHETAMINE NEGATIVE UR BARBITURATE NEGATIVE UR BENZODIAZEPINE NEGATIVE UR OPIATES QUAL NEGATIVE UR PHENCYCLIDINE (PCP) NEGATIVE Signed in PatientKeeper by Clayton Smith MD on 11/17/21 at 14:35 at 1435 ATTENT ION *EDITS and/or ADDENDA must be made in Patient Keeper for this note. * * Edits and ammendments created in House Party are not visible * * in Patient Keeper or the legal medical record (HPF). * [facility] #: [id number] END OF REPORT [facility] 2021-11-16 19:20:00 [id number] [address] PATIENT NAME: RALF RUSH ADMIT DATE: 11/16/21 ACCOUNT NO: [id number] ROOM NO: [id number] AGE: 50 REPORT TYPE: CONSULTATION SEX: M ADMITTING PHYSICIAN:Cholo Watkins MD ATTENDING PHYSICIAN:Cholo Watkins MD CONSULTATION DATE: CONSULTING PHYSICIAN: Mariusz Valentin MD ATTENDING PHYSICIAN: Dr. Watkins. REASON FOR CONSULTATION: Asthma exacerbation. HISTORY OF PRESENT ILLNESS: This is a 50-year-old -Citizen Of [place] male who came to my office. The patient was last seen somewhere in 2019. History of asthma and noncompliant with the office visits and his medications. The patient states he was coughing up some brownish color phlegm for the last 2 to 3 weeks, wheezing, coughing and no hemoptysis. No chest pain. No headaches or dizziness. Short of breath on exertion. He was not getting better, hence came to the Emergency Room. He was taking albuterol inhaler. No chest pains. No leg swellings. While he was in the office, his systolic was 170s and diastolics 122 and repeat was in the 116 to 118 range, diastolic. He was advised to come to the Emergency Room. I did call the ER physician, talked to him and sent him to the Emergency Room. The patient did come to the ER reluctantly. While he was in the Emergency Room, his blood pressure was elevated and the blood pressure was 178/127 with a heart rate of 82, afebrile. He did get hydralazine. Subsequent blood pressure was 178/97. He got nebulizer treatments and IV steroids. Feeling better. Less short of breath, less cough. LABORATORY DATA: Revealed troponin I less than 0.020. Sodium is 137, potassium 4.2, chloride 103, bicarbonate 27, BUN of 8, creatinine is 1.10. AST 24, ALT 25. CBC: WBC of 9.3, hemoglobin 16.4, and platelets 288. BNP was 8. Urine tox screen was positive for cannabinoids. ALLERGIES: PEANUT. HOME MEDICATIONS: Albuterol inhaler and nebulizer. SOCIAL HISTORY: Denies tobacco use, smokes marijuana. REVIEW OF SYSTEMS: As mentioned in HPI. No headaches. No fever. No hemoptysis. Short of breath. Coughing up some yellowish brown color phlegm for the last couple of weeks. Does notice wheezing. Has been taking his nebulizer treatments and inhalers frequently. No chest pains. No nausea, vomiting, diarrhea, or dizziness. No leg swelling. PHYSICAL EXAMINATION: PATIENT NAME RALF RUSH GENERAL: He is alert, he is awake. VITAL SIGNS: Respiratory rate of 18, pulse 74, temperature 36.6, blood pressure 168/97, sats room air is 95%. NECK: No raised JVD. No lymphadenopathy. HEART: Both first and second heart sounds heard. LUNGS: Bilateral rhonchi. ABDOMEN: Soft. EXTREMITIES: No edema. CENTRAL NERVOUS SYSTEM: Moving all extremities. IMPRESSION: 1. Acute exacerbation of bronchial asthma. 2. Acute bronchitis. 3. Hypertension, newly detected. PLAN: 1. The patient will consult Dr. Smith. MD will take care of blood pressure medications. 2. IV Solu-Medrol. 3. Nebulizer treatments, albuterol, ipratropium. 4. IV antibiotics. Chest x-ray reported negative. Thank you very much Dr. Watkins for your kind referral. Dictated By: Mariusz Valentin MD WT: CON:NADRIAN/BARBY/ARLETTE Conf#: [id number]/DID#: [id number] Authenticated by Mariusz Valentin MD On 12/12/2021 02:51:36 PM at 0251 PATIENT NAME RALF RUSH [facility] 2021-11-16 17:46:00 [facility] ([facility]) EMERGENCY PROVIDER REPORT REPORT#:[id number] REPORT STATUS: Signed DATE:11/16/21 TIME: 1745 PATIENT: RALF RUSH UNIT #: [id number] ROOM: [facility] BED: 1 AGE: 50 SEX: M PCP PHYS: No Primary or Family Physician SERVICE AUTHOR: Brianne Rob MD * ALL edits or amendments must be made on the electronic/computer document * HPI-General Illness Free Text HPI Notes Free Text HPI Notes 50 y/o M hx of asthma, says his sx usually get worse this time of the year, here with SOB, sent in from Dr. Gomez's office. 2-3d of sx, SOB, wheeze, cough, chest tightness, no swelling. Also coincidentally HTNive. Gradual onset, worsening, moderate, constant, no associated fevers. General Initial Greet Date/Time 11/16/21 1628 Provider in Triage HPI Chief Complaint Shortness of breath PE General/Const No acute distress Presentation Chief Complaint Breathing problem Review of Systems ROS Statements All systems rev neg except as marked. Review of Systems Constitutional Denies: Fever. Respiratory Reports: Cough, non-productive, Shortness of breath, Wheezing. Past Medical History - Adult Stated Complaint ASTHMAEXACERBATION,HTN Allergies Coded Allergies: peanut (UNKNOWN 06/04/19) Additional Medical History Asthma Family History: Reports: Hypertension. Smoking status: Smoking status for patients 13 years old or older: Current some day smoker Physical Exam Vital Signs Vital Signs First Documented: Result Date Time Pulse Ox 94 11/16 1629 B/P 176/127 / 1629 B/P Mean 143 / 1629 O2 Delivery Room air 11/16 1629 Temp 98.1 11/16 1629 Pulse 82 11/16 1629 Resp 18 11/16 1629 Last Documented: Result Date Time Pulse Ox 94 11/16 1629 B/P 176/127 11/16 1629 B/P Mean 143 / 1629 O2 Delivery Room air 11/16 1629 Temp 98.1 11/16 1629 Pulse 82 11/16 1629 Resp 18 11/16 1629 Review of Vital Signs Reviewed Free Text PE Notes Free Text PE Notes Constitutional: Vital signs and nursing note reviewed Eyes: PERRLA Cardiovascular: Heart sounds normal Pulmonary: Mild work of breathing. Expiratory wheeze. Abdomen: Soft, nontender Musck: No deformity Skin: Warm, dry Psych: Behavior normal Interpretation Diagnostics Lab Results Interpretation Results Laboratory Tests 11/16/21 1646: [Embedded Image Not Available] Laboratory Tests: 11/16 1645 Hematology WBC (3.2 - 11.5 x10 3/uL) 9.3 RBC (4.20 - 5.70 x10(6)/m) 5.29 Hgb (12.9 - 17.3 g/dL) 16.4 Hct (38.7 - 51.0 %) 49.2 MCV (80 - 100 fL) 93 MCH (26.7 - 33.3 pg) 31.0 MCHC (30.0 - 34.0 g/dL) 33.3 RDW (11.3 - 14.5 %) 12.6 Plt Count (130 - 408 x10 3/uL) 288 MPV (8.6 - 12.6 fL) 9.6 Neut % (Auto) (40.0 - 70.0 %) 58.2 Lymph % (Auto) (20 - 40 %) 22.7 [place] % (Auto) (1 - 10 %) 8.2 Eos % (Auto) (0.0 - 5.0 %) 9.7 H Baso % (Auto) (0.0 - 1.0 %) 1.0 Neut # (Auto) (1.6 - 7.2 x10 3/uL) 5.4 Lymph # (Auto) (1.1 - 2.7 x10 3/uL) 2.11 [place] # (Auto) (0.3 - 0.8 x10 3/uL) 0.8 Eos # (Auto) (0.0 - 0.5 x10 3/uL) 0.9 H Baso # (Auto) (0.0 - 0.1 x10 3/uL) 0.1 Immature Gran % (0.0 - 2.0 %) 0.2 Nucleated RBC % (0.0 - 0.9 %) 0.0 Microbiology: Date/Time Procedure - Status Source Growth 11/16 1724 Influenza Virus Type B Antigen - ORD NASOPHARG 11/16 1724 Influenza Virus Type A Antigen - ORD NASOPHARG Recent Impressions: RADIOLOGY - XR CHEST 1 V 11/16 1738 Report Impression -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
[2024-11-28] MEDS ORDERED: ALBUTEROL 2.5 MG/3 ML NEB SOL ONE ×5 (07:39→19:47)
[2024-11-28] MEDS ORDERED: IPRATROPIUM BROM 0.5MG/2.5ML ONE ×4 (07:40→19:47)
[2024-11-28] MEDS ORDERED: predniSONE 20 MG TAB ONE (07:40)
[2024-11-28 08:06] LABS: Absolute Basophils 0.1 K/uL (0-0.5); Absolute Eosinophils 0.8 K/uL (0-0.5); Absolute Monocytes 0.7 K/uL (0.1-1.3); Eosinophils % 7.6 % (0-4.4); Hematocrit 45.9 % (39.6-49.0); Hemoglobin 15.3 g/dL (13.6-17.9); Lymphocytes % 19.1 % (15.3-44.8); MCH 30.9 pg (27.0-35.0); MCHC 33.3 g/dL (32.0-36.0); MCV 92.9 fL (80-100); MPV 8.2 fL (7.6-11.3); Monocytes % 6.2 % (3.3-12.3); Neutrophils % 66.1 % (41.7-73.7); Nucleated Red Blood Cells % 0.1 % (0-0); Platelets 261 thou/uL (152-406); RBC Red Blood Cell Count 4.94 M/uL (4.33-5.43); Red Cell Distribution Width 13.3 % (12.1-15.2)
[2024-11-28 08:38] LABS: ALT/SGPT 34 U/L (16-61); AST/SGOT 32 U/L (15-37); Albumin 3.4 g/dL (3.4-5.0); Albumin/Globulin Ratio 0.9 (1.1-1.8); Alkaline Phosphatase 80 U/L (45-117); Anion Gap 8.7 mEq/L (5.0-15.0); BUN Blood Urea Nitrogen 13 mg/dL (7-18); Bicarbonate 29 mEq/L (21-32); Bilirubin Total 0.5 mg/dL (0.2-1.0); Globulin 3.8 g/dL (2.3-3.5); Glomerular Filtration Rate 68 ml/min (=/>90); Glucose Level 140 mg/dL (74-106); NT PRO-BNP 6 pg/mL (<125); Potassium 3.7 mEq/L (3.5-5.1); Protein, Total 7.2 g/dL (6.4-8.2); Sodium Level 140 mEq/L (136-145); Troponin High Sensitivity 7.8 pg/mL (<58.9)
[2024-11-28 08:39] LABS: Bilirubin Direct < 0.2 mg/dL (0-0.2); Bilirubin Indirect, Calculated 0.3 mg/dL (0.2-0.8)
--- NOTE | 2024-11-28 09:57 | RAD REPORT ---
EXAMINATION: ONE VIEW CHEST XR CLINICAL INDICATION: Male, 53 years old.,DYSPNEA TECHNIQUE: Frontal chest projection is submitted. Examination is limited by patient positioning and t echnique. COMPARISON: No prior exam. FINDINGS: The lungs are well inflated and clear. No pneumothorax or sizable effusion. The heart is normal in s ize. Mediastinal contours are unremarkable. IMPRESSION: No acute intrathoracic abnormalities.
[2024-11-28] MEDS ORDERED: ONDANSETRON 4 MG/2 ML VIAL IV PRN (10:12)
[2024-11-28] MEDS ORDERED: ACETAMINOPHEN 500 MG TAB PO PRN (10:12)
--- NOTE | 2024-11-28 10:12 | ER ---
Nurse's Notes [facility] Name: Bon Méndez Age: 53 yrs Sex: Male : 1970 Arrival Date: 11/28/2024 Time: 07:24 Bed 4 Private MD: Diagnosis: Asthma exacerbation;Hypoxia Presentation: 11/28 07:35 Chief complaint: Patient states: asthma exacerbation since last night. Coronavirus iw screen: At this time, the client does not indicate any symptoms associated with coronavirus-19. Ebola Screen: No symptoms or risks identified at this time. Initial Sepsis Screen: Does the patient meet any 2 criteria? No. Patient's initial sepsis screen is negative. Does the patient have a suspected source of infection? No. Patient's initial sepsis screen is negative. Risk Assessment: Do you want to hurt yourself or someone else? Patient reports no desire to harm self or others. 07:35 Method Of Arrival: Ambulatory iw 07:35 Acuity: ANURAG 4 iw 07:39 Onset of symptoms was November 27, 2024. iw 07:39 Acuity: ANURAG 3 iw Historical: - Allergies: 08:01 No Known Allergies; kc6 - PMHx: 08:01 Asthma; Hypertensive disorder; kc6 - PSHx: 08:01 None; kc6 - Immunization history:: Adult Immunizations up to date. - Infectious Disease History:: Denies. - Family history:: not pertinent. - Social history:: Smoking status: unknown. Screenin:02 [facility] ED Fall Risk Assessment (Adult) History of falling in the last 3 months, kc6 including since admission No falls in past 3 months (0 pts) Confusion or Disorientation No (0 pts) Intoxicated or Sedated No (0 pts) Impaired Gait No (0 pts) Mobility Assist Device Used No (0 pt) Altered Elimination No (0 pt) Score/Fall Risk Level 0 - 2 = Low Risk Oriented to surroundings. Abuse screen: Denies threats or abuse. Denies injuries from another. Nutritional screening: No deficits noted. Tuberculosis screening: No symptoms or risk factors identified. Assessment: 08:10 General: Appears in no apparent distress. comfortable, well groomed, well developed, kc6 Behavior is calm, cooperative, appropriate for age. Pain: Denies pain. Neuro: Level of Consciousness is awake, alert, obeys commands, Oriented to person, place, time, situation, Appropriate for age. Cardiovascular: Capillary refill < 3 seconds Rhythm is regular. Respiratory: Reports shortness of breath on exertion Airway is patent Trachea midline Respiratory effort is even, unlabored, Respiratory pattern is regular, symmetrical, Breath sounds with wheezes bilaterally. GI: No signs and/or symptoms were reported involving the gastrointestinal system. : No signs and/or symptoms were reported regarding the genitourinary system. EENT: No signs and/or symptoms were reported regarding the EENT system. Derm: No signs and/or symptoms reported regarding the dermatologic system. Skin is intact, is healthy with good turgor, Skin is pink, warm \T\ dry. Musculoskeletal: No signs and/or symptoms reported regarding the musculoskeletal system. Circulation, motion, and sensation intact. Range of motion: intact in all extremities. 09:07 Reassessment: Patient appears in no apparent distress at this time. No changes from kc6 previously documented assessment. Patient and/or family updated on plan of care and expected duration. Pain level reassessed. Patient is alert, oriented x 3, equal unlabored respirations, skin warm/dry/pink. Patient states feeling better. 10:07 Reassessment: Patient appears in no apparent distress at this time. No changes from kc6 previously documented assessment. Patient and/or family updated on plan of care and expected duration. Pain level reassessed. Patient is alert, oriented x 3, equal unlabored respirations, skin warm/dry/pink. Vital Signs: 07:36 Pulse 88; Resp 20; Pulse Ox 95% on R/A; iw 08:02 BP 162 / 100; Pulse 86; Resp 18 S; Pulse Ox 91% on R/A; kc6 10:15 BP 159 / 98; Pulse 78; Resp 16 S; Pulse Ox 96% on 2 lpm NC; kc6 19:59 BP 168 / 88; Pulse 96; Resp 17; Temp 98.2; Pulse Ox 100% ; dd2 ED Course: 07:29 Patient arrived in ED. gm2 07:29 Shabbir Gale MD is Attending Physician. rt 07:36 Triage completed. iw 07:38 Pily Silva, RACHEL is Primary Nurse. kc6 08:01 Arm band placed on. kc6 08:02 Patient has correct armband on for positive identification. Bed in low position. Call kc6 light in reach. Side rails up X 1. Pulse ox on. NIBP on. Door closed. Noise minimized. Lights dimmed. Warm blanket given. Pillow given. Verbal reassurance given. 08:02 Initial lab(s) drawn, by me, sent to lab. Inserted saline lock: 20 gauge in right [facility] antecubital area, using aseptic technique. Blood collected. Flushed with 10 mL NS. 08:49 XRAY Chest (1 view) In Process Unspecified. EDMS 10:12 Tom Armendariz MD is Hospitalizing Provider. rt 11:01 No provider procedures requiring assistance completed. Patient admitted, IV remains in [facility] place. 21:19 Provided Education on: admission. lg3 Administered Medications: 07:50 Drug: DuoNeb Nebulize (3:1) (2.5 mg - 0.5 mg) 3 ml Nebulizer once Route: Nebulizer; 6 09:09 Follow up: Response: No adverse reaction kc6 07:50 Drug: predniSONE PO 40 mg PO once Route: PO; kc6 09:09 Follow up: Response: No adverse reaction 6 08:40 Drug: Albuterol Inhalation 2.5 mg Inhalation once Route: Inhalation; kc6 09:09 Follow up: Response: No adverse reaction 6 11:27 Drug: MethylPrednisoLONE IVP 125 mg IVP once Route: IVP; Site: right antecubital; [facility] Medication: 11:02 VIS not applicable for this client. kc6 Outcome: 10:12 Decision to Hospitalize by Provider. rt 11:01 Admitted to ER Hold. Please see [facility] for further documentation. 6 11:01 Condition: good 11:01 Instructed on the need for admit, 21:20 Patient left the ED. lg3 Signatures: Dispatcher [employer] EDMS Dede Moore, RN Giovanna Ibarra RN RN lg3 Pily Silva RN RN kc6 Shabbir Gale MD MD rt Herlinda Huggins 2 KAREEM WILL RN RN dd2
--- NOTE | 2024-11-28 10:12 | EDPHYS ---
Physician Documentation [facility] Name: Bon Méndez Age: 53 yrs Sex: Male : 1970 Arrival Date: 11/28/2024 Time: 07:24 Bed 4 Private MD: ED Physician Shabbir Gale HPI: 11/28 07:38 This 53 yrs old Black Male presents to ER via Ambulatory with complaints of Breathing rt Difficulty, Asthma Exacerbation. 07:38 Patient with history of asthma presents to the ED with breathing difficulty starting rt overnight, states that he has an asthma exacerbation about once per year. Denies chest pain, the hull complaints, symptoms are moderate in severity, no other aggravating alleviating factors.. Historical: - Allergies: 08: No Known Allergies; kc6 - PMHx: 08: Asthma; Hypertensive disorder; kc6 - PSHx: 08:01 None; kc6 - Immunization history:: Adult Immunizations up to date. - Infectious Disease History:: Denies. - Family history:: not pertinent. - Social history:: Smoking status: unknown. ROS: 07:38 Constitutional: Negative for fever, chills, and weight loss, Cardiovascular: Negative rt for chest pain, palpitations, and edema, Abdomen/GI: Negative for abdominal pain, nausea, vomiting, diarrhea, and constipation, MS/Extremity: Negative for injury and deformity, Skin: Negative for injury, rash, and discoloration, Neuro: Negative for headache, weakness, numbness, tingling, and seizure, 07:38 Respiratory: Positive for cough, shortness of breath, wheezing, Exam: 07:38 Constitutional: This is a well developed, well nourished patient who is awake, alert, rt and in no acute distress. Head/Face: Normocephalic, atraumatic. Chest/axilla: Normal chest wall appearance and motion. Nontender with no deformity. No lesions are appreciated. Cardiovascular: Regular rate and rhythm with a normal S1 and S2. No gallops, murmurs, or rubs. Normal PMI, no JVD. No pulse deficits. Abdomen/GI: Soft, non-tender, with normal bowel sounds. No distension or tympany. No guarding or rebound. No evidence of tenderness throughout. Skin: Warm, dry with normal turgor. Normal color with no rashes, no lesions, and no evidence of cellulitis. MS/ Extremity: Pulses equal, no cyanosis. Neurovascular intact. Full, normal range of motion. Neuro: Awake and alert, GCS 15, oriented to person, place, time, and situation. Cranial nerves II-XII grossly intact. Motor strength 5/5 in all extremities. Sensory grossly intact. Cerebellar exam normal. Normal gait. 07:38 Respiratory: Wheezes heard on all lung [place], no respiratory distress, 07:54 ECG was reviewed by the Attending Physician. rt Vital Signs: 07:36 Pulse 88; Resp 20; Pulse Ox 95% on R/A; iw 08:02 BP 162 / 100; Pulse 86; Resp 18 S; Pulse Ox 91% on R/A; kc6 10:15 BP 159 / 98; Pulse 78; Resp 16 S; Pulse Ox 96% on 2 lpm NC; kc6 19:59 BP 168 / 88; Pulse 96; Resp 17; Temp 98.2; Pulse Ox 100% ; dd2 MDM: 07:34 Medical Screening Exam initiated rt 10:12 Differential diagnosis: Asthma, pneumonia, CHF. Data reviewed: vital signs, nurses rt notes, lab test result(s), EKG, radiologic studies. Consideration of Admission/Observation Patient was admitted/placed on observation. Management of patient was discussed with the following: Hospitalist: Agrees to admit. I considered the following discharge prescriptions or medication management in the emergency department Medications were administered in the Emergency Department. See MAR. Independent interpretation of the following test(s) in the Emergency Department X-Ray: My interpretation is No infiltrate seen on interpretation of x-ray images. Test considered but Not performed: CT: Low suspicion for pulmonary embolus, CT angiogram not indicated. Care significantly affected by the following chronic conditions: Asthma. Counseling: I had a detailed discussion with the patient and/or guardian regarding the historical points, exam findings, and any diagnostic results supporting the discharge/admit diagnosis, lab results, radiology results, the need for further work-up and treatment in the hospital. Response to treatment: the patient's symptoms have mildly improved after treatment. 11/28 07:37 Order name: Basic Metabolic Panel; Complete Time: 08:47 rt 11/28 07:37 Order name: CBC with Diff; Complete Time: 08:47 rt 11/28 07:37 Order name: LFT's; Complete Time: 08:47 rt 11/28 07:37 Order name: NT PRO-BNP; Complete Time: 08:47 rt 11/28 07:37 Order name: Troponin HS; Complete Time: 08:47 rt 11/28 10:18 Order name: CBC with Automated Diff EDMS 11/28 10:18 Order name: CBC with Automated Diff EDMS 11/28 10:18 Order name: Comprehensive Metabolic Panel EDMS 11/28 10:18 Order name: Comprehensive Metabolic Panel EDMS 11/28 07:37 Order name: XRAY Chest (1 view); Complete Time: 10:03 rt 11/28 07:37 Order name: EKG; Complete Time: 07:38 rt 11/28 07:37 Order name: Cardiac monitoring; Complete Time: 07:49 rt 11/28 07:37 Order name: EKG - Nurse/Tech; Complete Time: 07:50 rt 11/28 07:37 Order name: IV Saline Lock; Complete Time: 08:01 rt 11/28 07:37 Order name: Labs collected and sent; Complete Time: 08:01 rt 11/28 07:37 Order name: O2 Per Protocol; Complete Time: 07:38 rt 11/28 07:37 Order name: O2 Sat Monitoring; Complete Time: 07:38 rt EC:54 Rate is 82 beats/min. Rhythm is regular, Normal Sinus Rhythm with No ectopy. QRS [place] rt is Normal. NV interval is normal. QRS interval is normal. QT interval is normal. No Q waves. No ST changes noted. Interpreted by me. Administered Medications: 07:50 Drug: DuoNeb Nebulize (3:1) (2.5 mg - 0.5 mg) 3 ml Nebulizer once Route: Nebulizer; kc6 09:09 Follow up: Response: No adverse reaction kc6 07:50 Drug: predniSONE PO 40 mg PO once Route: PO; kc6 09:09 Follow up: Response: No adverse reaction kc6 08:40 Drug: Albuterol Inhalation 2.5 mg Inhalation once Route: Inhalation; kc6 09:09 Follow up: Response: No adverse reaction kc6 11:27 Drug: MethylPrednisoLONE IVP 125 mg IVP once Route: IVP; Site: right antecubital; kc6 Disposition: 10:12 Critical Care:. rt Disposition Summary: 11/28/24 10:12 Hospitalization Ordered Notes: Hospitalization Status: Observation rt Provider: Tom Armendariz rt Condition: Stable rt Problem: an acute exacerbation rt Symptoms: have improved rt Bed/Room Type: Standard rt Location: Telemetry/MedSurg (observation)(11/28/24 19:11) Room Assignment: 229(11/28/24 19:11) Diagnosis - Asthma exacerbation rt - Hypoxia rt Forms: - Medication Reconciliation Form rt - SBAR form rt - Leadership Thank You Letter rt Critical care time excluding procedures: 10:12 Critical care time: Bedside Care: 30 minutes, Consultation: 5 minutes. Total time: 35 rt minutes Signatures: Dispatcher [employer] EDErin Chapman RN RN ss Pily Silva RN RN kc6 Ange Whiting RN RN kb3 Shabbir Gale MD MD rt Corrections: (The following items were deleted from the chart) 10:42 10:12 Telemetry/MedSurg (observation) rt kb3 10:42 10:12 rt kb3 19:11 10:42 [facility] ER HOLD kb3 ss 19:11 10:42 ERHOLD- kb3 ss
[2024-11-28] MEDS: NA CHLORIDE 0.9% 1,000 ML IV SCH (11:00)
[2024-11-28] MEDS ORDERED: METHYLPREDNISOLONE 125 MG INJ ONE (11:21)
[2024-11-28] MEDS ORDERED: NA CHLORIDE 0.9% 1,000 ML ONE (11:21)
[2024-11-28] MEDS: IPRATROPIUM BROM 0.5MG/2.5ML NEB SCH (11:25)
[2024-11-28] MEDS: BUDESONIDE 0.5 MG/2 ML NEB NEB SCH (11:25)
[2024-11-28] MEDS: ALBUTEROL 2.5 MG/3 ML NEB SOL NEB SCH (11:25)
[2024-11-28] MEDS: METHYLPREDNISOLONE 125 MG INJ IV SCH ×2 (12:00→21:44)
[2024-11-28 14:11] VITALS: BMI 33.2
[2024-11-28] MEDS: HYDRALAZINE HCL 20 MG/ML VIAL IV PRN (22:57)
[2024-11-29 05:22] LABS: Absolute Basophils 0.1 K/uL (0-0.5); Absolute Lymphocytes (CBC) 0.9 K/uL (0.7-4.9); Absolute Monocytes 0.6 K/uL (0.1-1.3); Absolute Neutrophil 13.8 K/uL (1.8-8.0); Basophils % 0.3 % (0-1.3); Eosinophils % 0.1 % (0-4.4); Hematocrit 45.2 % (39.6-49.0); Hemoglobin 15.3 g/dL (13.6-17.9); Lymphocytes % 5.7 % (15.3-44.8); MCH 31.8 pg (27.0-35.0); MCHC 33.9 g/dL (32.0-36.0); MCV 93.7 fL (80-100); MPV 8.1 fL (7.6-11.3); Neutrophils % 89.9 % (41.7-73.7); Platelets 262 thou/uL (152-406); RBC Red Blood Cell Count 4.83 M/uL (4.33-5.43); Red Cell Distribution Width 13.6 % (12.1-15.2)
[2024-11-29 05:56] LABS: Albumin 3.3 g/dL (3.4-5.0); Albumin/Globulin Ratio 0.9 (1.1-1.8); Anion Gap 11.3 mEq/L (5.0-15.0); Bilirubin Total 0.2 mg/dL (0.2-1.0); Globulin 3.7 g/dL (2.3-3.5); Potassium 4.3 mEq/L (3.5-5.1)
[2024-11-29 07:29] LABS: Blood Morphology Comment NOT SEEN (NOT SEEN); Platelet Estimate ADEQ; White Blood Cell Scan OK (OK)
[2024-11-29] MEDS: METOPROLOL TAR 50 MG TAB PO ONE (09:14)
[2024-11-29 10:41] VITALS: O2SAT 93
--- NOTE | 2024-11-29 12:19 | P.DS ---
Admission Date: 11/28/24 Discharge Date: 11/29/24 Disposition: ROUTINE DISCHARGE Discharge Condition: GOOD Brief History of Present Illness: Diagnosis HPI 11/28/2024 Hospital Course: Bon was admitted and treated for the following diagnosis. Vital Signs/Physical Exam: Temp Pulse Resp BP Pulse Ox 98.0 F 81 16 182/98 H 94 11/29/24 08:00 11/29/24 08:00 11/29/24 08:00 11/29/24 08:00 11/29/24 08:00 Laboratory Data at Discharge: WBC 15.30 thou/uL (4.3-10.9) H 11/29/24 05:09 Hgb 15.3 g/dL (13.6-17.9) 11/29/24 05:09 Hct 45.2 % (39.6-49.0) 11/29/24 05:09 Plt Count 262 thou/uL (152-406) 11/29/24 05:09 Sodium 139 mEq/L (136-145) 11/29/24 05:09 Potassium 4.3 mEq/L (3.5-5.1) D 11/29/24 05:09 BUN 16 mg/dL (7-18) 11/29/24 05:09 Creatinine 1.12 mg/dL (0.70-1.30) 11/29/24 05:09 Glucose 179 mg/dL (74-106) H 11/29/24 05:09 Total Bilirubin 0.2 mg/dL (0.2-1.0) 11/29/24 05:09 AST 16 U/L (15-37) 11/29/24 05:09 ALT 30 U/L (16-61) 11/29/24 05:09 Alkaline Phosphatase 78 U/L (45-117) 11/29/24 05:09 Home Medications: Albuterol Neb [Proventil 0.083% Neb Soln] 2.5 mg NEB [id number] amp 11/29/24 Methylprednisolone [Medrol dosepack] 4 mg PO DIRECTED #1 roxi 11/29/24 New Medications: Methylprednisolone [Medrol dosepack] 4 mg PO DIRECTED #1 roxi Physician Discharge Instructions: -DC IV and DC home -Follow-up with PCP in 1 to 2 weeks -Follow-up with Pulmonary in 1 to 2 weeks -Please call Dr. Armendariz at [phone] if any questions regarding hospital stay -Please call nursing station at [phone] if any nursing or medication questions -Return to the emergency room if symptoms worsen Diet: Regular Activity: Fall precautions Followup: OOTKATHARINE [Primary Care Provider] -
[2024-11-29 12:26] VITALS: BP 171/83; TEMP 97.3
--- NOTE | 2024-12-05 10:30 | P.HP ---
Certification for Inpatient Patient admitted to: Inpatient With expected LOS: >2 Midnights Patient will require the following post-hospital care: None Practitioner: I am a practitioner with admitting privileges, knowledge of patient current condition, hospital course, and medical plan of care. Services: Services provided to patient in accordance with Admission requirements found in Title 42 Section 412.3 of the Code of Federal Regulations Patient History Date of Service: 11/28/24 Reason for admission: Acute respiratory failure History of Present Illness: patient is a 53-year-old gentleman came to the hospital with difficulty breathing. Patient was tachypneic and short of breath and patient was placed on BiPAP. Patient has history of asthma and his symptoms been worsened for last week. Patient was given nebs, steroids, antibiotics. Patient clinically doing well and will place patient on nasal cannula. At this time, patient has respiratory failure. Patient will be admitted for inpatient hospitalization. Allergies No Known Allergies Allergy (Unverified 11/28/24 10:24) Home Medications: Albuterol Neb [Proventil 0.083% Neb Soln] 2.5 mg NEB [id number] amp 11/29/24 Methylprednisolone [Medrol dosepack] 4 mg PO DIRECTED #1 roxi 11/29/24 - Past Medical/Surgical History Has patient received pneumonia vaccine in the past: No Diabetic: No -: Asthma Past Surgical History: Patient denies surgical history - Family History Father Family History: Reviewed- Non-Contributory - Social History Smoking Status: Never smoker Alcohol use: No CD- Drugs: No Place of Residence: Home Review of Systems 10-point ROS is otherwise unremarkable Physical Examination - Vital Signs Temperature: 97.3 F Blood Pressure: 171/83 Pulse: 92 Respirations: 14 Pulse Ox (%): 95 - Physical Exam General: Alert, In no apparent distress, Oriented x3 HEENT: Atraumatic, PERRLA, Mucous membr. moist/pink, EOMI, Sclerae nonicteric Neck: Supple, 2+ carotid pulse no bruit, No LAD, Without JVD or thyroid abnormality Respiratory: Clear to auscultation bilaterally, Normal air movement Cardiovascular: Regular rate/rhythm, Normal S1 S2, No murmurs Gastrointestinal: Normal bowel sounds, Soft and benign, Non-distended, No tenderness Musculoskeletal: No clubbing, No swelling, No tenderness Integumentary: No rashes Neurological: Normal gait, Normal speech, Normal strength at 5/5 x4 extr, Normal tone, Normal affect Lymphatics: No axilla or inguinal lymphadenopathy Assessment & Plan - Problems (Diagnosis) (1) Asthma exacerbation Status: Acute - Plan -nebs, steroids, and antibiotics -O2 per protocol. -peak flow measurements -outpatient spirometry or pulmonary function testing -repeat chest x-ray -pulmonary consultation Discharge Plan: Home Plan to discharge in: Greater than 2 days - Advance Directives Does patient have a Living Will: No Does patient have a Durable POA for Healthcare: No - Code Status/Comfort Care Code Status Assessed: Yes Code Status: Full Code Critical Care: No Time Spent Managing PTS Care (In Minutes): 50
--- NOTE | 2024-12-05 10:32 | P.DS ---
Discharge Date: 11/29/24 Disposition: ROUTINE DISCHARGE Discharge Condition: GOOD Reason for Admission: Acute respiratory failure - Problems (1) Asthma exacerbation Status: Acute Brief History of Present Illness: patient is a 53-year-old gentleman came to the hospital with difficulty breathing. Patient was tachypneic and short of breath and patient was placed on BiPAP. Patient has history of asthma and his symptoms been worsened for last week. Patient was given nebs, steroids, antibiotics. Patient clinically doing well and will place patient on nasal cannula. At this time, patient has respir atory failure. Patient will be admitted for inpatient hospitalization. Hospital Course: Patient has done well during hospital stay. Clinically, patient is much better. At this time, patient is stable for discharge home. Patient will follow-up with consultants and PCP as an outpatient. Vital Signs/Physical Exam: Temp Pulse Resp BP Pulse Ox 97.3 F 92 H 14 171/83 H 95 12/05/24 10:30 12/05/24 10:30 12/05/24 10:30 12/05/24 10:30 12/05/24 10:30 General: Alert, In no apparent distress, Oriented x3 Laboratory Data at Discharge: WBC 15.30 thou/uL (4.3-10.9) H 11/29/24 05:09 Hgb 15.3 g/dL (13.6-17.9) 11/29/24 05:09 Hct 45.2 % (39.6-49.0) 11/29/24 05:09 Plt Count 262 thou/uL (152-406) 11/29/24 05:09 Sodium 139 mEq/L (136-145) 11/29/24 05:09 Potassium 4.3 mEq/L (3.5-5.1) D 11/29/24 05:09 BUN 16 mg/dL (7-18) 11/29/24 05:09 Creatinine 1.12 mg/dL (0.70-1.30) 11/29/24 05:09 Glucose 179 mg/dL (74-106) H 11/29/24 05:09 Total Bilirubin 0.2 mg/dL (0.2-1.0) 11/29/24 05:09 AST 16 U/L (15-37) 11/29/24 05:09 ALT 30 U/L (16-61) 11/29/24 05:09 Alkaline Phosphatase 78 U/L (45-117) 11/29/24 05:09 Home Medications: Albuterol Neb [Proventil 0.083% Neb Soln] 2.5 mg NEB [id number] amp 11/29/24 Methylprednisolone [Medrol dosepack] 4 mg PO DIRECTED #1 roxi 11/29/24 New Medications: Methylprednisolone [Medrol dosepack] 4 mg PO DIRECTED #1 roxi Physician Discharge Instructions: -DC IV and DC home -Follow-up with PCP in 1 to 2 weeks -Follow-up with Pulmonary in 1 to 2 weeks -Please call Dr. Armendariz at [phone] if any questions regarding hospital stay -Please call nursing station at [phone] if any nursing or medication questions -Return to the emergency room if symptoms worsen Diet: Regular Activity: Fall precautions Followup: KATHARINE ALCANTAR [Primary Care Provider] - Time spent managing pt's care (in minutes): 35
--- NOTE | 2024-12-05 13:07 | EKG ---
Test Date: 2024-11-28 Test Time: 07:47:15 Turning Machine Set Up Operator: JOHANNA MEASUREMENT RESULTS: Intervals: Rate: 82 HI: 174 QRSD: 90 QT: 334 QTc: 390 [place]: P: 73 HI: 174 QRS: 25 T: 59 INTERPRETIVE STATEMENTS: Normal sinus rhythm Nonspecific T wave abnormality Abnormal ECG No previous ECG available for comparison Electronically Signed On 12-05-24 12:46:42 CDT by Brad Fraser
== END 2024-11-29 13:15 | disposition home or self-care (01) | DRG 202 ==
LOC: ER 07:24 → ERHOLD 10:12 → 2ND 20:38
PROVIDERS: ADMIT Hospitalist; ATTEND Hospitalist
DX: J45.901 Unspecified asthma with (acute) exacerbation (principal); J96.00 Acute respiratory failure, unspecified whether with hypoxia or hypercapnia; I10 Essential (primary) hypertension; Z79.899 Other long term (current) drug therapy
CPT/HCPCS: 36415; 71045; 80048; 80053; 80076; 83880; 84484; 85025; 93005; 94640; 96374; 99285; J0360; J2919; J7030; J7512; J7613; J7626; J7644